=== PATIENT | female | born 1980 | race Caucasian/White ===

== ENCOUNTER 2025-07-08 15:01 | Emergency (ER) | payer SELFPAY ==
[2025-07-08 15:11] VITALS: BP 126/62
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
[2025-07-08 18:49] VITALS: BP 119/84
== END 2025-07-08 18:50 | disposition home or self-care (01) ==
LOC: EMR 15:01
PROVIDERS: EMERGENCY PHYSICIAN Emergency Medicine
DX: Z13.30 Encounter for screening examination for mental health and behavioral disorders, unspecified (principal); F43.10 Post-traumatic stress disorder, unspecified; Z59.00 Homelessness unspecified; Z63.5 Disruption of family by separation and divorce; Z91.419 Personal history of unspecified adult abuse
CPT/HCPCS: 99283